=== PATIENT | female | born 1965 | race Caucasian/White ===

== ENCOUNTER → 2016-10-24 | Outpatient (CLI) | payer OTHER ==
[~2016-10-24] MED LIST: ATIVAN1 MG PO; B COMPLETE1 EACH PO; BACTRIM,SEPT1 TABLET PO; CALCIUM STOOL240 MG PO; DICYCLOMINE HCL20 MG PO; DULCOLAX5 MG PO; FLEXERIL10 MG PO; GAS-X125 M1 PO; MILK OF MAGNESI10 ML PO; MOTRIN800 MG PO; MULTIVITAMIN1 EAC2 PO; NAPROSYN500 MG PO; NATURAL VITA100 UNIT PO; OMEPRAZOLE40 M1 PO; OXYCODONE HCL5 MG PO; SENNA8.6 M1 PO; VALIUM5 MG PO; VITAMIN B-6 PO; VITAMIN B-6100 MG; VITAMIN B-6100 MG PO; VITAMIN D5000 UNI1 PO; ZOFRAN ODT4 MG PO; ZYRTEC10 M2 PO; [UNRECOGNIZED DRUG - OTHER] PO
== END | disposition home or self-care (01) ==
LOC: NUC 06:40
DX: R10.84 Generalized abdominal pain (principal)
CPT/HCPCS: 78264; A9541